=== PATIENT | female | born 1985 | race African-American/Black ===

== ENCOUNTER 2017-03-05 02:40 | Observation (INO) | payer OTHER ==
[2017-03-05] VITALS (20 sets, daily range): BP systolic 84–146; BP diastolic 48–90
[~2017-03-05] VITALS: Ht 152.4 cm; Wt 70.8 kg
[2017-03-05 02:59] LABS: URINE BILIRUBIN - DIPSTICK NEGATIVE (NEGATIVE); URINE BLOOD DIPSTICK NEGATIVE (NEGATIVE); URINE CLARITY SLIGHT CLOUDY; URINE COLOR YELLOW; URINE GLUCOSE - DIPSTICK NEGATIVE (NEGATIVE); URINE KETONE NEGATIVE (NEGATIVE); URINE LEUK ESTERASE NEGATIVE (NEGATIVE); URINE NITRITE - DIPSTICK NEGATIVE (Negative); URINE PROTEIN - DIPSTICK NEGATIVE (NEG-TRACE); URINE UROBILINOGEN - DIPSTICK 0.2 E.U./dL (0.2)
[2017-03-05 03:05] LABS: BARBITURATES NEGATIVE (NEGATIVE); COCAINE NEGATIVE (NEGATIVE); METHADONE NEGATIVE (NEGATIVE); OXCYCODONE NEGATIVE (NEGATIVE); TETRAHYDROCANNABIONOL NEGATIVE (NEGATIVE); TRICYLIC ANTIDEPRESSANTS NEGATIVE (NEGATIVE)
[2017-03-05 11:28] LABS: HEMATOCRIT 33.6 % (37.0-47.0); HEMOGLOBIN 10.7 g/dl (12.0-16.0); IMMATURE GRANULOCYTES 0.5 % (0.0-1.0); MEAN CELL VOLUME 80.6 fL CALC (80.0-100.0); MEAN CORPUSCULAR HGB 25.7 pG CALC (26.0-32.0); MEAN CORPUSCULAR HGB CONC 31.8 g/L CALC (32.0-36.0); NEUT# 7.92 thou/uL (2.00-7.15); RED BLOOD COUNT 4.17 mill/uL (4.20-5.60); RED CELL DISTRI WIDTH 14.4 % (11.5-15.5)
[2017-03-05 11:38] LABS: ALBUMIN 3.8 g/dL (3.2-5.0); ALKALINE PHOSPHATASE 201 u/l (38-126); ANION GAP 14 (6-22 (CALC)); BILIRUBIN, TOTAL 0.7 mg/dL (0.0-1.4); BUN 6 mg/dL (7-17); BUN/CREATININE RATIO 9 (12-20 (CALC)); CALCIUM 9.7 mg/dL (8.4-10.2); CARBON DIOXIDE 21 mmol/l (22-30); CHLORIDE 109 mmol/l (95-108); CREATININE 0.7 mg/dL (0.5-1.0); GFR > 60 ML/MIN (>=60 (CALC)); GFR FOR AFR.AMER. > 60 ML/MIN (>=60 (CALC)); GLUCOSE 84 mg/dL (65-105); POTASSIUM 4.5 mmol/l (3.5-5.1); SGOT/AST 26 u/l (14-36); SGPT/ALT 35 u/l (9-52); SODIUM 139 mmol/l (137-146); TOTAL PROTEIN 7.3 g/dL (6.3-8.2)
[2017-03-06 04:10] VITALS: BP 106/57
[2017-03-06 04:32] VITALS: BP 106/57
[2017-03-06 07:25] VITALS: BP 113/61
[2017-03-06 07:40] VITALS: BP 113/61
[2017-03-06] MEDS ORDERED: PRENATA3 PO (07:58)
[2017-03-06] MEDS ORDERED: ACCUPRIL5 MG PO (07:59)
== END 2017-03-06 10:08 | disposition home or self-care (01) | DRG 778 ==
LOC: OB 02:40 → OBOP 02:40 → OB 11:50
PROVIDERS: ADMIT Obstetrics & Gynecology; ATTEND Obstetrics & Gynecology
DX: O60.03 Preterm labor without delivery, third trimester (principal); Z3A.35 35 weeks gestation of pregnancy
CPT/HCPCS: G0378; J2540

== ENCOUNTER 2017-03-27 20:15 | Inpatient (IN) | payer OTHER ==
[~2017-03-27] VITALS: Ht 152.4 cm; Wt 75.7 kg
[2017-03-27] VITALS (7 sets, daily range): BP systolic 138–149; BP diastolic 68–90
[~2017-03-27 20:15] MED LIST: ACCUPRIL5 MG PO; PRENATA3 PO
--- NOTE | 2017-03-27 20:18 | NUR ---
PT ARRIVED WITH WITH C/O LEAKING OF FLUID. PT MOANING CONSTANTLY AND HOLDING ABDOMEN. CONTRACTIONS PALPATE MODERATE. PT ONLY SPEAKING CREOLE AND STATES SPEAKS BOTH, LANGUAGE BARRIER FOR QUESTIONS. PT BEARING DOWN WITH CONTRACTIONS. PT PLACED IN BED SVE /-1 SROM. UNABLE TO DETERMINE TIME D/T LANGUAGE BARRIER, AWAITING AGRICULTURAL ENGINEERING TECHNICIAN. EFM APPLIED. PT CHANGED INTO GOWN. PT DENIES NEED TO VOID.
--- NOTE | 2017-03-27 20:44 | NUR ---
DR. DOUGLAS NOTIFIED OF PT VISUALLY NOTICABLE SROM OF CLEAR FLUID. UNABLE TO DETERMINE TIME D/T LANGUAGE BARRIER. SVE OF /-1 WITH CONTRACTIONS EVERY 1-3 MINUTES. NOTIFIED OF POSITIVE GBS PER VISIT. HOWEVER, NEGATIVE GBS IN FEBRUARY FROM [facility]. ORDERS TO ADMIT PT, PCN FOR GBS AND NUBAIN FOR PAIN, WILL BE IN LATER TO SEE PT.
[2017-03-27 20:56] LABS: HEMATOCRIT 33.5 % (37.0-47.0); HEMOGLOBIN 10.9 g/dl (12.0-16.0); IMMATURE GRANULOCYTES 0.5 % (0.0-1.0); MEAN CELL VOLUME 80.7 fL CALC (80.0-100.0); MEAN CORPUSCULAR HGB 26.3 pG CALC (26.0-32.0); MEAN CORPUSCULAR HGB CONC 32.5 g/L CALC (32.0-36.0); NEUT# 6.61 thou/uL (2.00-7.15); RED BLOOD COUNT 4.15 mill/uL (4.20-5.60); RED CELL DISTRI WIDTH 15.5 % (11.5-15.5)
--- NOTE | 2017-03-27 20:57 | NUR ---
PT TURNED TO LEFT SIDE
[2017-03-27 21:37] LABS: ALBUMIN 3.5 g/dL (3.2-5.0); ALKALINE PHOSPHATASE 220 u/l (38-126); ANION GAP 15 (6-22 (CALC)); BILIRUBIN, TOTAL 0.5 mg/dL (0.0-1.4); BUN 10 mg/dL (7-17); BUN/CREATININE RATIO 14 (12-20 (CALC)); CALCIUM 9.4 mg/dL (8.4-10.2); CARBON DIOXIDE 19 mmol/l (22-30); CHLORIDE 108 mmol/l (95-108); CREATININE 0.8 mg/dL (0.5-1.0); GFR > 60 ML/MIN (>=60 (CALC)); GFR FOR AFR.AMER. > 60 ML/MIN (>=60 (CALC)); GLUCOSE 88 mg/dL (65-105); POTASSIUM 3.8 mmol/l (3.5-5.1); SGOT/AST 21 u/l (14-36); SGPT/ALT 32 u/l (9-52); SODIUM 139 mmol/l (137-146); TOTAL PROTEIN 6.9 g/dL (6.3-8.2)
--- NOTE | 2017-03-27 21:44 | NUR ---
DR. DOUGLAS AT BEDSIDE. SVE PERFORMED 2. NO NEW ORDERS. PT MOANING CONSTANTLY.
--- NOTE | 2017-03-27 21:50 | NUR ---
PT GIVEN NUBAIN FOR PAIN AT 2120. PT STATES PAIN IS BETTER AND NOTED TO BE MORE CALM BY THIS RN. PT STILL MOANING CONSTANTLY EVEN WHEN NOT TIM. HOWEVER, VOLUME IS NOT LOUD.
[2017-03-27] MEDS ORDERED: FERROUS SULF325 M2 PO (21:58)
[2017-03-28] VITALS (19 sets, daily range): BP systolic 60–156; BP diastolic 26–90
--- NOTE | 2017-03-28 00:09 | NUR ---
SVE 6/80/-2, CERVIX NOTED TO BE THICKER ON MATERNAL LEFT. PT OOB TO BR TO VOID. NO SUCCESSFUL VOID WAS ATTAINED. PARTIAL LINEN CHANGE AND TATIANA CARE PROVIDED. PT RETUREND TO BED ON RIGHT SIDE WITH PEANUT BALL BTW LEGS. US AND TOCO ADJUSTED. SIGNIFICANT OTHER AT BEDSIDE AND SUPPORTIVE.
--- NOTE | 2017-03-28 00:46 | NUR ---
PT MEDICATED AT 0037 WITH NUBAIN. PT STATES IS A LTITLE BETTER. HOWEVER, IS STILL MOANING CONSTANTLY EVEN WHEN NOT TIM. SIGNIFICANT OTHER AT BEDSIDE AND SUPPORTIVE.
--- NOTE | 2017-03-28 01:25 | NUR ---
PT TURNED TO LEFT SIDE WITH PEANUT BALL BTW LEGS. PT STILL MOANING CONSTANTLY, LOUDER WITH CONTRACTION. SIGNIFICANT OTHER AT BEDSIDE AND SUPPORTIVE.
--- NOTE | 2017-03-28 02:19 | NUR ---
PT TURNED TO RIGHT SIDE WITH PEANUT BALL BTW LEGS. PT CONTINUES TO MOAN CONSTANTLY. SIGNFICICANT OTHER AT BEDSIDE AND SUPPORTIVE.
--- NOTE | 2017-03-28 03:13 | NUR ---
SVE PERFORMED . PT TURNED TO LEFT SIDE WITH PEANUT BALL BTW LEGS. PT MOANING CONSTANTLY. SIGNIFICANT OTHER AT BEDSIDE AND SUPPORTIVE.
--- NOTE | 2017-03-28 03:25 | NUR ---
PT POSITIONED IN THRONES POSITION.
--- NOTE | 2017-03-28 03:58 | NUR ---
0344- PT SEMI-JAVIER, SVE 8-/80/-2, CERVIX THICKER ON MATERNAL LEFT SIDE. 0346- RIGHT SIDE, THEN LEFT SIDE, IVF BOLUS, O2 APPLIED BY NRB AT 10L. 0350- LEFT TILT, SVE 9/80/-1, CERVIX THICK ON MATERNAL LEFT SIDE. 0352- PT TURNED LEFT SIDE. US & TOCO ADJUSTED.
--- NOTE | 2017-03-28 05:42 | NUR ---
0437- SVE , OOB TO AMBULATE TO ROOM 1 0445- IN ROOM 1, PT TURNED RIGHT SIDE 0446- PT TURNED TO LEFT SIDE 0450- , PT TURNED TO RIGHT SIDE 0452- PT TURNED TO LEFT SIDE, O2 10L NRB MASK APPLIED TO PT 0455- PT TURNED TO RIGHT SIDE 0457- PT TURNED TO LEFT SIDE 0500- TRAIL PUSH, THEN TURNED TO LEFT SIDE 0505- , EDCUATED AND DEMONSTRATED PUSHING FOR PT, 0506- TURNED TO RIGHT SIDE, THEN LEFT SIDE, IV FLUID BOLUS STARTED 0511- PT TURNED TO RIGHT SIDE 0512- DR. DOUGLAS NOTIFIED OF SVE AND RECURRENT VARIABLE DECELERATION, WILL BE OUT TO ROOM TO EVALUATE, PUSHING STOPPED 05- DR. DOUGLAS AT BEDSIDE 0523- DR. DOUGLAS WANTS OR TEAM CALLED ON STAND BY IF PT UNABLE TO SUCCESSFULLY PUSH OUT 0527- DRIVER SUPERVISOR [employer] CALLED AND SPOKE WITH TO SAFETY AIDE [id number] WHO TRANSLATED THE CORRECT WAY TO PUSH, THAT THE INFANT'S HEART RATE WAS DROPPING WITH EACH CONTRACTION AND IF THE PT WAS UNABLE TO SUCCESSFULLY PUSH WAS GOING FOR . PT VERBALLY CONSENTED. PT CONSENTED TO TUBAL LIGATION WELL WITH SAFETY AIDE. 0533- PT PUSHING WITH CONTRACTIONS 0541- KIWI APPLIED BY DR. DOUGLAS TO INFANT HEAD. NO POP-OFF'S. TWO PULLS. 0542- ASSISTED VAGINAL DELIVERY AT 0542 WITH TERMINAL MECONIUM. SPONTANEOUS CRY NOTED. CORD DOUBLE CLAMPED AND CUT AFTER 60 SECONDS OF DELAYED CORD CLAMPING. 0544- 20 UNITS OF PITOCIN IN 1000 ML LR STARTED AT 999 ML/HR AT 0544. [facility] DELIVERED INTACT. 0600- SALMON CATHETER INSERTED BY DR. DOUGLAS. LEFT PERIURETHRAL REPAIR BEGAN. 06- REPAIR COMPLETED. TATIANA CARE PROVIDED. PARTIAL LINEN CHANGE. NOTED BP TO BE 60/26, PULSE AT 109. BLOOD PRESSURE CUFF AROUND PT'S ELBOW. BP CUFF APPLIED CORRECTLY. FUNDUS FIRM U/1, SCANT BLEEDING. 0615- BP 62/31, PULSE 101. BLOOD PRESSURE CUFF MOVED TO LEFT ARM. 0619- BP 60/33, FUNDUS FIRM U/1, SCANT BLEEDING. 06- DR. DOUGLAS AT BEDSIDE. NOTIFIED OF LOW BP. ORDERS RECEIVED FOR IV FLUID BOLUS OF 1000 ML LR AND IM METHERGINE. 0630- METHERGINE 0.2 MG GIVEN IN LEFT THIGH 06- PITOCIN RATE CHANGED TO 125 ML/HR.
--- NOTE | 2017-03-28 06:55 | NUR ---
PT RESTING IN BED, ASSESSEMENT, VS, FUNDAL CHECK DONE, STABLE. PT C/O OF PAIN, RATE IT 8 OUT OF 10. WILL MEDICATE. DISCUSSED PLAN OF CARE WITH SIGNIFICANT OTHER, WHO SPEAKS ENGLISH. VERBALIZED UNDERSTANDING.
--- NOTE | 2017-03-28 07:20 | NUR ---
ASSISTED PT TO SITTING IN THE SIDE OF THE BED, ASSISTED PT TO STAND PT STATED FELT DIZZY. PERICARE DONE IN BED, SALMON KEPT IN, ICE APPLIED TO PERINEUM, PANTIES AND PADS PLACED, GOWN CHANGED. ASSISTED TO WHEELCHAIR, TAKEN TO ROOM 207 ORIENTED TO ROOM. TEACHING DONE.
--- NOTE | 2017-03-28 07:44 | NUR ---
MEDICATED PT WITH MOTRIN FOR PAIN.
--- NOTE | 2017-03-28 09:05 | NUR ---
PT RESTING IN BED, SIGNIFICANT OTHER AT BEDSIDE, AND IN OPEN CIRB. PT STATES PAIN IS BETTER. PAIN IS RATED 5 OUT 10.
--- NOTE | 2017-03-28 10:11 | NUR ---
URINE SAMPLE OBTAINED VIA PORT AFTER SALMON BEING BRIEFLY CLAMPED. SENT TO LAB FOR UA/DOA, SINCE PT WAS UNABLE TO PROVIDE URINE IN ADMISSION.
--- NOTE | 2017-03-28 10:15 | NUR ---
ASSISTED PT TO BATHROOM, PT MOVING VERY SLOW, HAVING MODERATE TO SEVERE PAIN TO RLQ AND RIGHT LOWER BACK. PT HAVING DIFFICULTY LIFTING RIGHT LEG DURING WALKING. PT SAT ON TOILET, PERICARE DONE, [place]INE SPRAY USED. PT MOVED BACK TO BED VIA WHEELCHAIR DUE TO PAIN. FF @ 1 ABOVE U, RIGHT LOWER BACK/RIGHT ABDOMEN SOFT, NO HEMOTOMA NOTED. DR. DOUGLAS AT BED SIDE ASSESSING PT. ORDERS RECEIVED.
[2017-03-28 10:22] LABS: URINE BILIRUBIN - DIPSTICK NEGATIVE (NEGATIVE); URINE BLOOD DIPSTICK MODERATE (NEGATIVE); URINE CLARITY CLEAR; URINE COLOR YELLOW; URINE GLUCOSE - DIPSTICK NEGATIVE (NEGATIVE); URINE KETONE NEGATIVE (NEGATIVE); URINE NITRITE - DIPSTICK NEGATIVE (Negative); URINE PROTEIN - DIPSTICK NEGATIVE (NEG-TRACE); URINE SPECIFIC GRAVITY <=1.005; URINE UROBILINOGEN - DIPSTICK 0.2 E.U./dL (0.2)
[2017-03-28 10:30] LABS: URINE EPITHELIAL CELLS FEW EPI/hpf (0-FEW); URINE LEUK ESTERASE TRACE (NEGATIVE); URINE RBC 25-50 RBC/hpf (0-5); URINE WBC 0-2 WBC/hpf (0-5)
[2017-03-28 10:31] LABS: BARBITURATES NEGATIVE (NEGATIVE); COCAINE NEGATIVE (NEGATIVE); METHADONE NEGATIVE (NEGATIVE); OXCYCODONE NEGATIVE (NEGATIVE); TETRAHYDROCANNABIONOL NEGATIVE (NEGATIVE); TRICYLIC ANTIDEPRESSANTS NEGATIVE (NEGATIVE)
--- NOTE | 2017-03-28 11:03 | NUR ---
IM MORPHINE GIVEN TO PT FOR PAIN.
--- NOTE | 2017-03-28 11:30 | NUR ---
PT STATED THAT THE MORPHINE HELPED WITH PAIN.
--- NOTE | 2017-03-28 12:31 | NUR ---
LORTAB GIVEN FOR PAIN.
--- NOTE | 2017-03-28 13:17 | NUR ---
PT STATED EARLIER THROUGH [employer] LINE THAT SHE HAS NO TRANSPORTATION TO GO HOME TO [place] AND THAT SHE HAS FINANCIAL NEEDS, REQUESTING ADDITIONAL RESOURCES. MAHSA SMITH FROM CASE MANAGEMENT MADE AWARE AND WILL SEE PT TOMORROW.
--- NOTE | 2017-03-28 13:30 | NUR ---
PT STATES NO PAIN WHEN SHE IS LAYING DOWN, BUT RATES PAIN 9 OUT 10 WHEN WALKING. PT REFUSED ANY MORE PAIN MED.
--- NOTE | 2017-03-28 15:35 | NUR ---
MOTRIN GIVEN FOR PAIN. ASSISTED PT TO TURN TO RIGHT SIDE IN BED. SIGNIFICANT OTHER AT BED SIDE. PT AMBULATED EARLIER IN THE ROOM. PT DENIES ANY NEEDS AT THIS TIME.
--- NOTE | 2017-03-28 16:55 | NUR ---
ASSISTED PT TO STAND, TO GO TO THE BATHROOM, PT WAS WALKING SLOW, WITH MODERATED TO SEVERE PAIN TO LOWER BACK. PERICARE DONE, CHANGED PANTY, PAD PLACED. PT WENT BACK TO BED VIA WHEELCHAIR. PT REFUSED STRONGER PAIN MED. PT STATED THAT PAIN MED DOES NOT HELP WHEN WALKING. SIGNIFICANT OTHER IN ROOM.
--- NOTE | 2017-03-28 17:12 | NUR ---
DR. DOUGLAS NOTIFIED ABOUT PT'S PAIN NOT RESOLVING DURING AMBULATION AND PT HAVING DIFFICULTY AMBULATING. MD STATE COMING IN TO SEE PT.
--- NOTE | 2017-03-28 18:10 | NUR ---
IN TO SEE PT, BUT PT IS EATING DINNER. MD WILL RETURN LATER.
--- NOTE | 2017-03-28 18:30 | NUR ---
DR. DOUGLAS IS IN TO SEE PT. ASSESSMENT DONE BY . ORDERS RECEIVED. ICE PACK APPLIED TO LOWER BACK.
--- NOTE | 2017-03-28 18:45 | NUR ---
REPORT GIVEN TO MARAL MONTEZ RN.
--- NOTE | 2017-03-28 19:20 | NUR ---
PT RESTING IN BED IN NO APPARENT DISTRESS. ASSESSMENT AND VITALS CHARTED. SALMON SECURED WITH LEG STRAP AND DRAINING CLEAR YELLOW URINE. PT WITH C/O PAIN IN LOWER BACK, B/L HIPS AND PELVIC BONE AREA. FULL ROM NOTED IN BOTH HIPS. PAIN WITH MOVEMENT OF HIPS. ICE PACK ON LOWER BACK. POC AND EDUCATION REVIEWED WITH PT AND S/O. CALL LIGHT IN REACH.
--- NOTE | 2017-03-28 19:47 | NUR ---
ASSISTED PT OOB TO BEDSIDE CHAIR. TATIANA PAD CHANGED. PT GRIMACED AND STATES SHE HAS PAIN IN HER VAGINA. PT ABLE TO AMBULATE SLOWLY X1 ASSIST. PT POSITIONED IN BEDSIDE CHAIR. POC REVIEWED. CALL LIGHT IN REACH.
--- NOTE | 2017-03-28 23:30 | NUR ---
PT SLEEPING IN BED IN NO APPARENT DISTRESS. BREATHING UNLABORED. PT POSITIONED ON RIGHT SIDE WITH PILLOWS BEHIND HER BACK AND BETWEEN HER KNEES. SALMON DRAINING CLEAR YELLOW URINE. S/O AT THE BEDSIDE AND CALL LIGHT IN REACH.
[2017-03-29] VITALS (8 sets, daily range): BP systolic 106–122; BP diastolic 56–77
--- NOTE | 2017-03-29 03:00 | NUR ---
PT RESTING IN BED IN NO APPARENT DISTRESS. BREATHING UNLABORED. DENIES PAIN. FRESH WATER PROVIDED. SALMON CONTINUES TO DRAIN CLEAR YELLOW URINE AND IS SECURED WITH LEG STRAP. 1000ML OUTPUT NOTED.
--- NOTE | 2017-03-29 04:13 | NUR ---
Pt well without assistance. States "no" when asked if she needs anything at this time.
--- NOTE | 2017-03-29 05:15 | NUR ---
CBC DRAWN FROM LEFT AC USING #24 BUTTERFLY NEEDLE X1 ATTEMPT. PT TOLERATED WELL.
[2017-03-29 05:25] LABS: IMMATURE GRANULOCYTES 0.7 % (0.0-1.0); MEAN CELL VOLUME 80.9 fL CALC (80.0-100.0); MEAN CORPUSCULAR HGB 26.3 pG CALC (26.0-32.0); MEAN CORPUSCULAR HGB CONC 32.5 g/L CALC (32.0-36.0); NEUT# 12.51 thou/uL (2.00-7.15); RED BLOOD COUNT 1.94 mill/uL (4.20-5.60)
[2017-03-29 05:48] LABS: HEMATOCRIT 15.7 % (37.0-47.0); HEMOGLOBIN 5.1 g/dl (12.0-16.0)
--- NOTE | 2017-03-29 05:55 | NUR ---
CRITICAL LAB RESULTS RECEIVED FROM ITZEL PÉREZ. DR DOUGLAS CALLED AND NOTIFIED OF LAB RESULTS. PT UNABLE TO AMBULATE TO BATHROOM WITH ASSIST X2 DUE "TO PAIN IN HER VAGINA." TATIANA CARE PROVIDED AND PT GRIMACES IN PAIN WITH ANY MANIPULATION OF SALMON CATHETER. PT STATES SHE HAS "SHARP PAINS IN HER VAGINA." MD NOTIFIED OF PT CONDITION. NO NEW ORDERS AT THIS TIME.
--- NOTE | 2017-03-29 06:20 | NUR ---
RENE,RT AT THE BEDSIDE TO TRANSLATE AND EXPLAIN POC. PT TEARFUL AND STATES SHE HAS CONSTANT LOWER BACK AND B/L HIP PAIN WITH SHARP PAINS IN HER VAGINA. ENCOURAGED PT TO REST. REPOSITIONED WITH PILLOWS. WILL MEDICATE--SEE EMAR. PT VERBALIZED UNDERSTANDING. S/O AT BEDSIDE AND CALL LIGHT IN REACH.
--- NOTE | 2017-03-29 06:45 | NUR ---
RECEIVED REPORT FROM PRIOR SHIFT ON PATIENT. PATIENT IN BED. SALMON IN SITU PER MD ORDERS. VITALS STABLE.
--- NOTE | 2017-03-29 07:30 | NUR ---
MD TO BEDSIDE. ORDERS FOR ABDOMINAL ULTRASOUND, TRANSFUSE OF 2 UNITS OF PRBC, CONSENT RECEIVED FOR BLOOD TRANSFUSION DONE.
--- NOTE | 2017-03-29 08:00 | NUR ---
IV HEPLOCK X2 TO RIGHT HAND WITH 20 GAUGE PREPARATION FOR TRANSFUSION OF PRBC.
--- NOTE | 2017-03-29 09:00 | NUR ---
laboratory called and stated that 1st Unit of PRBC is ready. To lab to collect PRBC. IV of Normal Saline infusing at 150cc/hr via right hand.
--- NOTE | 2017-03-29 09:25 | NUR ---
[facility]'s collected and checked and verified with Halima Reese RN. Vitals of 109/58, 107, 18, 98.6.
--- NOTE | 2017-03-29 09:40 | NUR ---
Vitals of 117/64, 90, 18 and 98.0. PRBC infusing with no difficulty. Patient denies no headache, flank pain noted.
--- NOTE | 2017-03-29 09:55 | NUR ---
Vitals 120/57, 82, 18 and 98.3. PRBC being transfused well with no difficulty.
--- NOTE | 2017-03-29 10:15 | NUR ---
Vitals done 113/59, 98.3, 94, 18.
--- NOTE | 2017-03-29 10:45 | NUR ---
repair technician in room doing abdomen ultrasound.
--- NOTE | 2017-03-29 11:00 | NUR ---
Transfusion of PRBC infused well with no difficulty. Transfusion finished at this time.
--- NOTE | 2017-03-29 12:10 | NUR ---
Received PRBC number 2. Blood checked and verified with Sherri Hurley RN. Vitals 116/69, 109, 18, 98.7.
--- NOTE | 2017-03-29 12:12 | NUR ---
Medicated with motrin 600mg by mouth for pain of level of 4 on scale of 1 to 10.
--- NOTE | 2017-03-29 12:25 | NUR ---
120/74, 100, 97.4, 18. PRBC INFUSING WELL WITH NO DIFFICULTY. PATIENT DENIES NO PAIN OR DISTRESS.
--- NOTE | 2017-03-29 12:40 | NUR ---
117/60, 97, 97.6, 18. Patient voices no concern at present moment. Pain level of 2 on scale of 1 to 10.
--- NOTE | 2017-03-29 13:00 | NUR ---
DR. LEVY ON UNIT IN ROOM TALKING TO PATIENT.
--- NOTE | 2017-03-29 13:30 | NUR ---
recinos discontinued per MD orders.
--- NOTE | 2017-03-29 14:42 | NUR ---
[employer] on unit bringing car seat for . Pads needed for infant car seat and state that they will bring it tomorrow morning. Information on transportation to be given in morning.
--- NOTE | 2017-03-29 15:00 | NUR ---
CBC collected and sent to lab.
[2017-03-29 15:46] LABS: HEMATOCRIT 23.4 % (37.0-47.0); HEMOGLOBIN 7.6 g/dl (12.0-16.0); IMMATURE GRANULOCYTES 0.6 % (0.0-1.0); MEAN CORPUSCULAR HGB 27.9 pG CALC (26.0-32.0); MEAN CORPUSCULAR HGB CONC 32.5 g/L CALC (32.0-36.0); NEUT# 12.28 thou/uL (2.00-7.15); RED BLOOD COUNT 2.72 mill/uL (4.20-5.60); RED CELL DISTRI WIDTH 15.5 % (11.5-15.5)
--- NOTE | 2017-03-29 16:00 | NUR ---
[employer] on unit to bring pads as not here tomorrow.
--- NOTE | 2017-03-29 16:15 | NUR ---
research worker encyclopedia here on unit in room talking with patient on transportation issues.
--- NOTE | 2017-03-29 16:21 | NUR ---
social security benefits interviewer states patient has ride for home tomorrow, form for parents as teachers given if patient needs it , patient demonstrates use of car seat via [employer].
--- NOTE | 2017-03-29 17:20 | NUR ---
Medicated with Lortab one tablet by mouth for pain level of 4 on scale of 1 to 10.
--- NOTE | 2017-03-29 17:44 | NUR ---
Pain level of 1 on scale of 1 to 10.
--- NOTE | 2017-03-29 18:00 | NUR ---
Patient voided 500cc of urine well.
--- NOTE | 2017-03-29 18:07 | NUR ---
Report being prepared for oncoming shift.
--- NOTE | 2017-03-29 20:36 | NUR ---
PT RESTING IN BED AFTER AMBULATING IN ROOM. DENIES THE NEED FOR ANY PAIN MEDICATION AT THIS TIME. TEACHING REINFORCED, PT VERBALIZES UNDERSTANDING. PT ENCOURAGED TO CALL WITH ANY NEEDS OR CONCERNS
[2017-03-30 02:00] VITALS: BP 106/66
--- NOTE | 2017-03-30 02:04 | NUR ---
PT SLEEPING SOUNDLY, AT BS IN OPEN CRIB
--- NOTE | 2017-03-30 06:16 | NUR ---
PT , DENIES THE NEED FOR ANY MEDICATION AT THIS TIME, EMCOURAGED TO CALL FOR ANY NEEDS OR ASSISTANCE
--- NOTE | 2017-03-30 06:17 | NUR ---
REPORT PREPARED FOR ONCOMING SHIFT
--- NOTE | 2017-03-30 07:00 | NUR ---
RECEIVED REPORT FROM IRINEO CORDOVA RN. PT IS UP IN ROOM. CONDITION IS STABLE. NO NEEDS AT THIS TIME.
--- NOTE | 2017-03-30 07:15 | NUR ---
LORTAB FOR PAIN
[2017-03-30 07:55] VITALS: BP 111/69
--- NOTE | 2017-03-30 07:55 | NUR ---
ASSESSMENT CHARTED, NO NEEDS AT THIS TIME. PT USING ICE, SPRAY AND SITZ PRN
--- NOTE | 2017-03-30 10:25 | NUR ---
RECEIVED REPORT FROM Marsha KWOK RN. PT SITTING UP IN BED WITH NO COMPLAINTS. ASSESSMENT COMPLETED BY Marsha WKOK RN. PT HAS BEEN USING TUCKS AND SITZ BATH. LIGHT RUBRA NOTED, TATIANA CARE DONE BY PT. PT WITH NO COMPLAINTS OF FAINTING,WEAKNESS OR DIZZINESS. SKIN COMPLEXION WNL. MUCOUS MEMBRANES PINK. CARE REVIEWED, PT KNODDING HEAD UNDERSTANDING. PT PREFERS TEACHING IN MICRONESIAN, CAN UNDERSTAND BETTER. PRIMARY LANGUAGE IS CREOLE. ICE WATER GIVEN. @1100 PT INFANT, POSITIVE BONDING NOTED. PT WITH NO COMPLAINTS. @1210 LUNCH TRAY GIVEN. IV DISCONTINUED, CATHETER INTACT. SITE WNL. @1330 SIGNIFICANT OTHER AT BEDSIDE. SPEAKS FLUENT MICRONESIAN AND CREOLE. TRASLATED DISCHARGE INTRUCTIONS TO PT. PT VERBALIZED UNDERSTANDING. NO QUESTIONS AT THIS TIME. @1500 Discharge instructions given. Patient verbalizes understanding of same. Discharged in stable condition via Wheelchair to Home with significant other. All belongings sent with pt. Prescriptions for Motrin, Lortab, and ferrous sulfate given. Pt instructed to continue taking vitamins. Instructed to review control options prior to follow-up appt at [facility]. Instructed to continue using sitz bath and tucks at home.
[2017-03-30] MEDS ORDERED: NORCO1 TA2 PO (10:31)
[2017-03-30] MEDS ORDERED: IBUPROFEN600 MG PO (10:32)
[2017-03-30] MEDS ORDERED: FERROUS SULF325 M2 PO (10:34)
== END 2017-03-30 15:00 | disposition home or self-care (01) | DRG 775 ==
LOC: OBOP 20:15 → OB 20:15 → OBOP 20:29 → OB 20:30
PROC: 10D07Z6 Extraction of Products of Conception, Vacuum, Via Natural or Artificial Opening (ICD-10-PCS; principal; 2017-03-28)
PROC: 0UQMXZZ Repair Vulva, External Approach (ICD-10-PCS; 2017-03-28)
PROC: 30233N1 Transfusion of Nonautologous Red Blood Cells into Peripheral Vein, Percutaneous Approach (ICD-10-PCS; 2017-03-29)
PROC: 30233N1 Transfusion of Nonautologous Red Blood Cells into Peripheral Vein, Percutaneous Approach (ICD-10-PCS; 2017-03-29)
DX: O42.02 Full-term premature rupture of membranes, onset of labor within 24 hours of rupture (principal); D62 Acute posthemorrhagic anemia; O71.82 Other specified trauma to perineum and vulva; O70.0 First degree perineal laceration during delivery; O76 Abnormality in fetal heart rate and rhythm complicating labor and delivery; O99.824 Streptococcus B carrier state complicating childbirth; O90.81 Anemia of the puerperium; R10.11 Right upper quadrant pain; R10.32 Left lower quadrant pain; Z3A.39 39 weeks gestation of pregnancy; Z37.0 Single live birth
CPT/HCPCS: J2540; P9016